=== PATIENT | male | born 1985 | race Caucasian/White ===

== ENCOUNTER 2018-05-14 00:21 | Emergency (ER) | payer BC ==
[2018-05-14 02:01] LABS: ABSOLUTE BASOPHILS # (AUTO) 0.1 10^3/uL (0.0-0.2); ABSOLUTE EOSINOPHILS # (AUTO) 0.4 10^3/uL (0.0-0.6); ABSOLUTE LYMPHOCYTES (AUTO) 2.3 10^3/uL (0.5-4.7); ABSOLUTE MONOCYTES (AUTO) 0.7 10^3/uL (0.1-1.4); ABSOLUTE NEUT (AUTO) 5.9 10^3/uL (1.7-8.2); BASOPHILS % (AUTO) 0.6 % (0-2); EOSINOPHILS % (AUTO) 4.7 % (0-6); HEMATOCRIT 43.1 % (37.9-51.0); HEMOGLOBIN 15.2 g/dL (13.5-17.0); LYMPHOCYTES % (AUTO) 24.2 % (13-45); MEAN CORPUSCULAR HEMOGLOBIN 29.9 pg (27.0-33.4); MEAN CORPUSCULAR HGB CONC 35.4 g/dL (32.0-36.0); MEAN CORPUSCULAR VOLUME 84 fl (80-97); MONOCYTES % (AUTO) 7.3 % (3-13); PLATELET COUNT 317 10^3/uL (150-450); RED CELL DISTRIBUTION WIDTH 13.3 % (11.5-14.0); SEGMENTED NEUTROPHILS % (AUTO) 63.2 % (42-78); TOTAL CELLS COUNTED % (AUTO) 100 %; WHITE BLOOD COUNT 9.3 10^3/uL (4.0-10.5)
--- NOTE | 2018-05-14 02:28 | RADIOLOGY REPORT (SQ) ---
EXAM DESCRIPTION: XR CHEST 2 VIEWS COMPLETED DATE/TME: 05/14/2018 01:38 CLINICAL HISTORY: CP COMPARISON: None. FINDINGS: Frontal and lateral views of the chest. Leads overlie the chest. The cardiomediastinal silhouette has normal size and contour. No consolidation, pneumothorax, or pleural effusion. No displaced rib fractures identified. Upper abdominal soft tissues are unremarkable. IMPRESSION: 1. No acute pulmonary process identified.
[2018-05-14 02:56] LABS: ALANINE AMINOTRANSFERASE 34 U/L (21-72); ALBUMIN 4.2 g/dL (3.5-5.0); ALKALINE PHOSPHATASE 87 U/L (38-126); ANION GAP 12 (5-19); ASPARTATE AMINO TRANSFERASE 24 U/L (17-59); BILIRUBIN,DIRECT 0.3 mg/dL (0.0-0.4); BILIRUBIN,TOTAL 0.6 mg/dL (0.2-1.3); BLOOD UREA NITROGEN 15 mg/dL (7-20); CARBON DIOXIDE 24 mmol/L (22-30); CHLORIDE 106 mmol/L (98-107); GLUCOSE 93 mg/dL (75-110); LIPASE 58.2 U/L (23-300); SODIUM 142.1 mmol/L (137-145); TOTAL PROTEIN 7.2 g/dL (6.3-8.2)
--- NOTE | 2018-05-14 03:02 | ER Document Report ---
ED Cardiac - General Mode of Arrival: Ambulatory Information source: Patient TRAVEL OUTSIDE OF THE [place] IN LAST 30 DAYS: No <SYED HOLLINGSWORTH - Last Filed: 05/14/18 02:39> <BETY ROBISON - Last Filed: 05/14/18 04:22> - General Chief Complaint: Chest Pain Stated Complaint: CHEST PAIN Time Seen by Provider: 05/14/18 01:38 Notes: Patient is a 33 year old male that presents to the emergency department today with complaints of chest pain. Patient states that he was lying down trying to go to sleep when his chest pain began. Patient states that he became nauseated when his pain began. Patient states that the pain seemed to radiate to his back. Patient states he felt anxious and was unable to fall asleep when is new. Patient does admit to recent increased stress related to work. (SYED HOLLINGSWORTH) - Related Data Allergies/Adverse Reactions: No Known Allergies Allergy (Verified 05/14/18 00:22) Past Medical History - General Information source: Patient - Social History Smoking Status: Current Every Day Smoker Cigarette use (# per day): Yes Chew tobacco use (# tins/day): No Frequency of alcohol use: Rare Drug Abuse: None Lives with: Family Family History: Reviewed & Not Pertinent Patient has suicidal ideation: No Patient has homicidal ideation: No Renal/ Medical History: Denies: Hx Peritoneal Dialysis <SYED HOLLINGSWORTH - Last Filed: 05/14/18 02:39> Review of Systems - Review of Systems Constitutional: No symptoms reported EENT: No symptoms reported Cardiovascular: See HPI, Chest pain Respiratory: No symptoms reported Gastrointestinal: See HPI, Nausea Genitourinary: No symptoms reported Male Genitourinary: No symptoms reported Musculoskeletal: No symptoms reported Skin: No symptoms reported Hematologic/Lymphatic: No symptoms reported Neurological/Psychological: See HPI, Anxiety -: Yes All other systems reviewed and negative <SYED HOLLINGSWORTH - Last Filed: 05/14/18 02:39> Physical Exam - Vital signs Interpretation: Normal - General General appearance: Appears well, Alert - HEENT Head: Normocephalic, Atraumatic Eyes: Normal Pupils: PERRL - Respiratory Respiratory status: No respiratory distress Chest status: Nontender Breath sounds: Normal Chest palpation: Normal - Cardiovascular Rhythm: Regular Heart sounds: Normal auscultation Murmur: No - Abdominal Inspection: Normal Distension: No distension Bowel sounds: Normal Tenderness: Nontender Organomegaly: No organomegaly - Back Back: Normal, Nontender - Extremities General upper extremity: Normal inspection, Nontender, Normal color, Normal ROM , Normal temperature General lower extremity: Normal inspection, Nontender, Normal color, Normal ROM , Normal temperature, Normal weight bearing. No: Maribeth's sign - Neurological Neuro grossly intact: Yes Cognition: Normal Orientation: AAOx4 [place] Coma Scale Eye Opening: Spontaneous [place] Coma Scale Verbal: Oriented [place] Coma Scale Motor: Obeys Commands [place] Coma Scale Total: 15 Speech: Normal Motor strength normal: LUE, RUE, LLE, RLE Sensory: Normal - Psychological Associated symptoms: Tearful - Skin Skin Temperature: Warm Skin Moisture: Dry Skin Color: Normal <BETY ROBISON - Last Filed: 05/14/18 04:22> - Vital signs Vitals: Temp Pulse Resp BP Pulse Ox 98.2 F 75 20 134/78 H 98 05/14/18 00:31 05/14/18 00:31 05/14/18 00:31 05/14/18 00:31 05/14/18 00:31 Course - Laboratory Result Diagrams: 05/14/18 01:45 05/14/18 01:45 <SYED HOLLINGSWORTH - Last Filed: 05/14/18 02:39> - Laboratory Result Diagrams: 05/14/18 01:45 05/14/18 01:45 <BETY ROBISON - Last Filed: 05/14/18 04:22> - Re-evaluation Re-evalutation: 05/14/18 04:21 Patient is a 33-year-old male who came in this evening complaining of chest pain after he was having panic attacks at home. States that this does not usually happen when he is trying to go to sleep. Did not take anything for it. Patient has been under a lot of stress at work and also had an employee recently . Blood work within normal limits. TSH is still pending the patient would like to go home as he needs to go to work in the morning. Will be given a prescription for Vistaril as needed and is to follow-up with his doctor. Understands and agrees with plan. Stable for discharge. Patient has been completely asymptomatic in the emergency department. (BETY ROBISON) - Vital Signs Vital signs: Temp Pulse Resp BP Pulse Ox 98.2 F 75 20 123/82 97 05/14/18 00:31 05/14/18 00:31 05/14/18 04:01 05/14/18 04:01 05/14/18 04:01 Discharge <SYED HOLLINGSWORTH - Last Filed: 05/14/18 02:39> <BETY ROBISON - Last Filed: 05/14/18 04:22> - Discharge Clinical Impression: Atypical chest pain, Anxiety Condition: Stable Disposition: HOME, SELF-CARE Instructions: Anxiety ([facility]), Chest Pain of Unclear Cause ([facility]) Prescriptions: Hydroxyzine Pamoate [Vistaril 25 mg Capsule] 25 mg PO BIDP PRN #10 capsule PRN Reason: Forms: Return to Work Referrals: KIANA HENAO JR, MD [Primary Care Provider] - Follow up in 3-5 days Scribe Attestation: 05/14/18 04:22 I personally performed the services described in the documentation, reviewed and edited the documentation which was dictated to the scribe in my presence, and it accurately records my words and actions. (BETY ROBISON) Scribe Documentation - Scribe Written by Gokul:: Gokul Champion, 05/14/2018 [id number] acting as scribe for :: Todd <SYED HOLLINGSWORTH - Last Filed: 05/14/18 02:39>
[2018-05-14 04:14] VITALS: BP 123/82
--- NOTE | 2018-05-14 09:27 | EKG REPORT ---
SEVERITY:- NORMAL ECG - SINUS RHYTHM : Confirmed by: Lizbeth Ortiz 14-May-2018 09:26:40
== END 2018-05-14 04:26 | disposition home or self-care (01) ==
LOC: ER 00:21
DX: R07.9 Chest pain, unspecified (principal); R11.0 Nausea; F41.9 Anxiety disorder, unspecified; F17.210 Nicotine dependence, cigarettes, uncomplicated
CPT/HCPCS: 36415; 71046; 80053; 83690; 84443; 84484; 85025; 93005; 93010; 99285

== ENCOUNTER 2020-09-16 09:14 | Emergency (ER) | payer BC ==
--- NOTE | 2020-09-16 10:04 | ER Document Report ---
ED Medical Screen (RME) - General Chief Complaint: Chest Pain Stated Complaint: CHEST PAIN Time Seen by Provider: 09/16/20 09:57 Primary Care Provider: KIANA HENAO JR, MD [Primary Care Provider] - Follow up as needed Mode of Arrival: Ambulatory Information source: Patient Notes: 35-year-old male presents to ED for chest pain sometimes shortness of breath. He states he has some pain to his left neck down his left arm pain is sharp level 3. Does have a history of anxiety hypothyroid fractured arm and a pilonidal cyst removal he does smoke 8 cigarettes a day does not drink more than once or twice a year and does not do any illicit drugs I did do a chest pain protocol. I have greeted and performed a rapid initial assessment of this patient. A comprehensive ED assessment and evaluation of the patient, analysis of test results and completion of medical decision making process will be conducted by an additional ED providers. TRAVEL OUTSIDE OF THE [place] IN LAST 30 DAYS: No - Related Data Allergies/Adverse Reactions: No Known Allergies Allergy (Verified 05/14/18 00:22) Past Medical History Renal/ Medical History: Denies: Hx Peritoneal Dialysis Physical Exam - Vital signs Vitals: Temp Pulse Resp BP Pulse Ox 98.4 F 82 16 140/82 H 98 09/16/20 09:20 09/16/20 09:20 09/16/20 09:20 09/16/20 09:20 09/16/20 09:20 Course - Vital Signs Vital signs: Temp Pulse Resp BP Pulse Ox 98.4 F 82 16 140/82 H 98 09/16/20 09:20 09/16/20 09:20 09/16/20 09:20 09/16/20 09:20 09/16/20 09:20 Doctor's Discharge - Discharge Referrals: KIANA HENAO JR, MD [Primary Care Provider] - Follow up as needed
--- NOTE | 2020-09-16 10:29 | RADIOLOGY REPORT (SQ) ---
EXAM DESCRIPTION: CHEST 2 VIEWS IMAGES COMPLETED DATE/TIME: 09/16/2020 10:18 am REASON FOR STUDY: cough chest pain COMPARISON: 05/14/18. EXAM PARAMETERS: NUMBER OF VIEWS: two views TECHNIQUE: Digital Frontal and Lateral radiographic views of the chest acquired. RADIATION DOSE: NA LIMITATIONS: none FINDINGS: LUNGS AND PLEURA: No opacities, masses or pneumothorax. No pleural effusion. MEDIASTINUM AND HILAR STRUCTURES: No masses or contour abnormalities. HEART AND VASCULAR STRUCTURES: Heart normal size. No evidence for failure. BONES: No acute findings. HARDWARE: None in the chest. OTHER: No other significant finding. IMPRESSION: NO ACUTE RADIOGRAPHIC FINDING IN THE CHEST. TECHNICAL DOCUMENTATION: JOB ID: [id number] 2010 [employer]- All Rights Reserved Reading location - IP/workstation name: [email or web address]
[2020-09-16 10:48] LABS: ABSOLUTE EOSINOPHILS # (AUTO) 0.2 10^3/uL (0.0-0.6); ABSOLUTE MONOCYTES (AUTO) 0.4 10^3/uL (0.1-1.4); ABSOLUTE NEUT (AUTO) 3.4 10^3/uL (1.7-8.2); BASOPHILS % (AUTO) 0.7 % (0-2); EOSINOPHILS % (AUTO) 3.9 % (0-6); HEMOGLOBIN 14.9 g/dL (13.5-17.0); LYMPHOCYTES % (AUTO) 32.2 % (13-45); MEAN CORPUSCULAR HEMOGLOBIN 29.9 pg (27.0-33.4); MEAN CORPUSCULAR HGB CONC 35.4 g/dL (32.0-36.0); MEAN CORPUSCULAR VOLUME 85 fl (80-97); MONOCYTES % (AUTO) 7.2 % (3-13); PLATELET COUNT 310 10^3/uL (150-450); RED BLOOD COUNT 4.96 10^6/uL (4.35-5.55); RED CELL DISTRIBUTION WIDTH 12.8 % (11.5-14.0); TOTAL CELLS COUNTED % (AUTO) 100 %; WHITE BLOOD COUNT 6.1 10^3/uL (4.0-10.5)
[2020-09-16 10:50] LABS: ALBUMIN 4.2 g/dL (3.5-5.0); ALKALINE PHOSPHATASE 79 U/L (38-126); ANION GAP 7 (5-19); ASPARTATE AMINO TRANSFERASE 24 U/L (17-59); BILIRUBIN,DIRECT 0.1 mg/dL (0.0-0.4); BILIRUBIN,TOTAL 0.6 mg/dL (0.2-1.3); BLOOD UREA NITROGEN 12 mg/dL (7-20); CARBON DIOXIDE 27 mmol/L (22-30); CHLORIDE 106 mmol/L (98-107); GLUCOSE 91 mg/dL (75-110); POTASSIUM 4.7 mmol/L (3.6-5.0); TOTAL PROTEIN 7.4 g/dL (6.3-8.2)
--- NOTE | 2020-09-16 12:42 | EKG REPORT ---
SEVERITY:- NORMAL ECG - SINUS RHYTHM : Confirmed by: Kevin Harrell MD 16-Sep-2020 12:41:58
--- NOTE | 2020-09-16 13:55 | ER Document Report ---
Entered by LYNNE CABA SCRIBE 09/16/20 1224 Acting as scribe for:HAO MOORE MD ED General - General Chief Complaint: Chest Pain Stated Complaint: CHEST PAIN Time Seen by Provider: 09/16/20 09:57 Primary Care Provider: KIANA HENAO JR, MD [Primary Care Provider] - Follow up as needed Mode of Arrival: Ambulatory Information source: Patient Notes: This 35 year old male patient presents to the emergency department today with complaints of left upper chest wall pain that began x2 days ago. Patient states pain radiates to his left neck with movement of his left upper extremity. Patient states he thought he was having a heart attack last year and was diagnosed with a anxiety attack. Patient states he does heavy lifting at work and believes his chest wall pain is from anxiety or stress. Denies any injury, trauma, lower extremity pain, N/V, or weakness. Denies history of HTN, HLD, or DM. Per [facility] records, patient has history of taking thyroid medications. TRAVEL OUTSIDE OF THE [place] IN LAST 30 DAYS: No - Related Data Allergies/Adverse Reactions: No Known Allergies Allergy (Verified 05/14/18 00:22) Past Medical History - General Information source: Patient - Social History Smoking Status: Current Every Day Smoker Cigarette use (# per day): Yes Lives with: Family Family History: Reviewed & Not Pertinent, Other - Hyperthyroidism Patient has homicidal ideation: No - Past Medical History Cardiac Medical History: Denies: Hx Hypercholesterolemia, Hx Hypertension Endocrine Medical History: Denies: Hx Diabetes Mellitus Type 1, Hx Diabetes Mellitus Type 2 Renal/ Medical History: Denies: Hx Peritoneal Dialysis Psychiatric Medical History: Reports: Hx Anxiety Review of Systems - Review of Systems Constitutional: No symptoms reported EENT: No symptoms reported Cardiovascular: See HPI, Chest pain - left Respiratory: No symptoms reported Gastrointestinal: See HPI. denies: Nausea, Vomiting Genitourinary: No symptoms reported Male Genitourinary: No symptoms reported Musculoskeletal: See HPI, Neck pain - radiates to left neck with LUE movement. denies: Other - lower extremity pain Skin: No symptoms reported Hematologic/Lymphatic: No symptoms reported Neurological/Psychological: See HPI. denies: Weakness -: Yes All other systems reviewed and negative Physical Exam - Vital signs Vitals: Temp Pulse Resp BP Pulse Ox 98.4 F 82 16 140/82 H 98 09/16/20 09:20 09/16/20 09:20 09/16/20 09:20 09/16/20 09:20 09/16/20 09:20 - General General appearance: Appears well, Alert - HEENT Head: Normocephalic, Atraumatic Eyes: Normal Pupils: PERRL Neck: Normal, Supple, Other - Pain radiates to left neck wiith ROM of LUE. - Respiratory Respiratory status: No respiratory distress Breath sounds: Normal Notes: Tenderness with palpation to the left anterior upper chest wall. No ecchymosis to the chest wall. No pain with deep breathing on exam. - Cardiovascular Rhythm: Regular Heart sounds: Normal auscultation Murmur: No - Abdominal Inspection: Normal, Other - soft Distension: No distension Bowel sounds: Normal Tenderness: Nontender - Extremities General upper extremity: Normal inspection, Normal ROM General lower extremity: Normal inspection, Normal ROM. No: Edema - Neurological Neuro grossly intact: Yes Cognition: Normal Orientation: AAOx4 [place] Coma Scale Eye Opening: Spontaneous [place] Coma Scale Verbal: Oriented [place] Coma Scale Motor: Obeys Commands [place] Coma Scale Total: 15 Speech: Normal Motor strength normal: LUE, RUE, LLE, RLE Sensory: Normal - Psychological Associated symptoms: Normal affect, Normal mood - Skin Skin Temperature: Warm Skin Moisture: Dry Skin Color: Normal Course - Re-evaluation Re-evalutation: 09/16/20 13:47 Patient states that he is not in any more pain than he was before except when he raises his left shoulder he notices that the pain in his left anterior chest wall and radiated radiating up his neck occurs. - Vital Signs Vital signs: Temp Pulse Resp BP Pulse Ox 98.4 F 82 16 140/82 H 98 09/16/20 09:20 09/16/20 09:20 09/16/20 09:20 09/16/20 09:20 09/16/20 10:00 09/16/20 13:47 Vital signs stable - Laboratory Results Result Diagrams: 09/16/20 10:10 09/16/20 10:10 Laboratory Results Interpreted: 09/16/20 10:10 TSH 5.48 H 09/16/20 13:47 Laboratories unremarkable except for TSH of 5.48. Patient's troponin is less than detectable. Patient does not want to wait for a second troponin inasmuch as his pain started yesterday and he is 24 hours beyond the initial onset of pain. 09/16/20 13:48 Patient is on thyroid replacement medication and his TSH is 5.2 I recommended the patient follow-up with his primary care physician for adjustment in his thyroid supplement. Critical Laboratory Results Reviewed: No Critical Results - Radiology Results Radiology Results Interpreted: 09/16/20 13:48 Chest X-Ray 09/16/20 10:02 IMPRESSION: NO ACUTE RADIOGRAPHIC FINDING IN THE CHEST. Chest x-ray no acute radiographic finding on the chest. Critical Radiology Results Reviewed: No Critical Results - EKG Interpretation by Me Additional EKG results interpreted by me: 09/16/20 13:51 Twelve-lead EKG shows normal sinus rhythm rate of 80, normal intervals MS inter cindy QRS interval QT interval, normal axis, no acute ST changes to suggest a STEMI. Discharge - Discharge Clinical Impression: Chest wall pain, Hypothyroidism Condition: Stable Disposition: HOME, SELF-CARE Instructions: Chest Wall Pain ([facility]), Anti-Inflammatory Medication ([facility]) Referrals: KIANA HENAO JR, MD [Primary Care Provider] - Follow up as needed I personally performed the services described in the documentation, reviewed and edited the documentation which was dictated to the scribe in my presence, and it accurately records my words and actions.
[2020-09-16 14:31] VITALS: BP 122/78
== END 2020-09-16 14:20 | disposition home or self-care (01) ==
LOC: ER 09:14
DX: R07.89 Other chest pain (principal); E03.9 Hypothyroidism, unspecified; M54.2 Cervicalgia; F17.210 Nicotine dependence, cigarettes, uncomplicated
CPT/HCPCS: 36415; 71046; 80053; 84443; 84484; 85025; 93005; 93010; 99285